=== PATIENT | female | born 1980 | race Caucasian/White ===

== ENCOUNTER 2019-08-16 05:38 | Day surgery (SDC) | payer OTHER, SELFPAY ==
[2019-08-13 09:12] VITALS: BMI 21.5
[2019-08-16] VITALS (7 sets, daily range): BP systolic 101–115; BP diastolic 53–70; PULSE 54–74; RESP 10–16; TEMP 36.4–37; O2SAT 100; BMI 21.0
[2019-08-16] MEDS: LACTATED RINGERS 1,000 ML 30 ML IV CONT ×2 (06:55→08:40)
[2019-08-16] MEDS: IBUPROFEN IV 800 MG/200 ML 800 MG/200 ML BAG 400 MG IVPB (07:02)
--- NOTE | 2019-08-16 07:22 | WPDANESEPPF ---
Anes - Initial Pre Proc Eval Procedure: Operation Date: 08/16/19 07:30 Proposed Procedures p Excision Bartholin's Gland - Fidelia Martin MD Date/Time: 08/16/19 07:22 Surgeon: Fidelia Martin MD Pre Op Diagnosis: bartholin's gland abscess Patient Data Age: 39 Gender: F Height: 1.63 m Weight: 55.7 kg Last Vital Signs Temp 37.0 C 08/16/19 06:50 Pulse 69 08/16/19 06:50 Resp 16 08/16/19 06:50 BP 101/68 08/16/19 06:50 Pulse Ox 100 08/16/19 06:50 Allergies Allergy/AdvReac Type Severity Reaction Status Date / Time No Known Allergies Allergy Mild Unverified 08/16/19 07:07 Home Medications Medication Instructions Recorded Confirmed Type No Home Medications 08/13/19 08/16/19 History Patient hx anesthesia problems: none Family hx anesthesia problems: none PMFSH Social History Social History Smoking status: Never smoker Alcohol intake: current Gender identity (if verbalized by the patient): Female Anes - Eval Final PreProcedure Day of Procedure 08/16/19 07:22 Patient weight: normal Heart: regular rate and rhythm Lungs: clear to auscultation and normal air movement Airway: Mallampati scale class II Neurological: alert and oriented Last oral intake: >/= 8 hours ASA classification: II Emergent: no Anesthetic plan: proceed Anesthesia type and monitoring: general LMA Informed Consent: The patient's anesthetic plan and its attendant risks and benefits were discussed with the patient/family/POA. Questions were solicited and answers provided to the satisfaction of the patient/family/POA.
--- NOTE | 2019-08-16 07:30 | PM.IMHP ---
H&P: HPI History of Present Illness Chief complaint: bartholin's gland abscess Narrative: Luciana Stratton is a 39 year old female with a painful vulvar lesion/Bartholin's abscess. We have agreed to perform excision of Bartholin's gland. She understands the risk. She understands that injuries may occur that result in hospitalization, more surgery, severe illness. She understands risk of hemorrhage and infection. She did understands as were risk of wound breakdown. Review of Systems Constitutional: Constitutional: Reports no additional constitutional complaints, Denies fatigue, Denies headache(s), Denies lethargy and Denies weakness Eyes: Eyes: Reports no additional eye complaints, Denies blurry vision and Denies photophobia ENT: Reports as per HPI, Denies headache(s) and Denies neck pain Cardiovascular: Cardiovascular: Denies chest pain, Denies diaphoresis, Denies leg edema, Denies palpitations and Denies dyspnea Respiratory: Respiratory: Denies hemoptysis, Denies dyspnea and Denies wheezing Gastrointestinal: Gastrointestinal: Denies abdominal pain, Denies melena, Denies bloating, Denies hematochezia, Denies nausea and Denies vomiting Genitourinary: Genitourinary: Reports no additional female genitourinary complaints Musculoskeletal: Musculoskeletal: Denies joint swelling, Denies neck pain, Denies numbness and Denies stiffness Neurologic: Denies Abnormal speech present, Denies confusion, Denies headache(s), Denies numbness and Denies weakness Psychiatric: Psychiatric: Denies anxiety, Denies confusion, Denies depression, Denies homicidal ideation and Denies suicidal ideation Endocrine: Endocrine: Denies fatigue and Denies palpitations Allergic/Immunologic: Allergic/Immunologic: Denies wheezing [facility], [facility] Social History Social History Smoking status: Never smoker Alcohol intake: current Gender identity (if verbalized by the patient): Female Meds Home Medications and Allergies Home Medications Medication Instructions Recorded Confirmed Type No Home Medications 08/13/19 08/16/19 History Allergies Allergy/AdvReac Type Severity Reaction Status Date / Time No Known Allergies Allergy Mild Unverified 08/16/19 07:07 Vital Signs Vital Signs - 24 hr 08/16/19 06:50 Temperature 98.6 F Pulse Rate 69 Respiratory Rate 16 Blood Pressure 101/68 Pulse Oximetry 100 Exam Const: General: healthy appearing, comfortable and no acute distress; No confusion Orientation/consciousness: No confusion Eyes: Direct Ophthalmoscopy: No photophobia Resp: Auscultation: clear to auscultation bilaterally, no rales, no rhonchi and no wheezes Cardio: Rate: regular rate Heart sounds: no click, no murmurs and no rubs GI: Inspection: non-distended GI Palp: No abdominal tenderness Auscultation: normal bowel sounds : External Female Exam: other (2.5 cm enlarged Bartholin's gland on the right, tender) Speculum Exam - Vagina: normal appearance of the vagina Speculum Exam - Cervix: normal appearance of the cervix Bimanual exam- vagina & uterus: normal bimanual exam Bimanual Exam- Adnexa, other: normal adnexae Neuro: General: No confusion Speech: No Abnormal speech present Extrem: General: normal to inspection, no pedal edema and no calf tenderness Assessment and Plan Assessment and plan (1) Bartholin's gland abscess: Code(s): N75.1 - Abscess of Bartholin's gland Status: Acute Additional Plan This patient is a 39-year-old female presents for preoperative care. She has a Bartholin's gland abscess that is recurrence. We have agreed to excise the Bartholin's gland. She understands risks, benefits, and alternatives. She has completed the informed consent process is ready to proceed.
[2019-08-16] MEDS: LIDO 1%/EPINEPHRINE 1:100,000 20 ML VIAL 10 ML INFILTRATE (07:40)
[2019-08-16] MEDS: ceFAZolin SODIUM 1 GM VIAL IM (07:45)
--- NOTE | 2019-08-16 08:26 | SUR.OPER ---
EBL:10CC
--- NOTE | 2019-08-16 08:49 | PM.PROC ---
Procedure Note - Detailed Date of procedure: 08/16/19 Pre-op diagnosis: bartholin's gland abscess Procedure performed: Excision of Bartholin's gland Description of procedure: Patient was taken to the operating room. She was prepped and draped in the dorsal lithotomy position after induction of mac anesthesia. A linear skin incision was made on the right labia majora. Prior to that the subcutaneous tissue around the Bartholin's abscess was injected with lidocaine. The incision was opened and the subcutaneous tissue was dissected around the Bartholin's abscess. All along the lateral and superior and inferior aspects tissue was moved off the capsule of the gland. Medially the skin was carefully dissected off of the gland. At the posterior aspect of the cyst the subcutaneous tissue was removed in the capsule was amputated. It was intact and was sent to pathology department. Deep sutures of 3 0 Vicryl were placed in a running lock fashion in the deep subcutaneous tissue. A 2nd layer of subcutaneous sutures were placed in a running lock fashion. A 3rd layer in the shallow subcutaneous tissue was placed. This skin was closed in an interrupted 3 0 Vicryl sutures. It was hemostatic. Procedure was terminated. Anesthesia: MAC Surgeon: Fidelia Martin MD Estimated blood loss (mL): 25 Drains: No Packing: No Pathology: yes Complications: No immediate complications Condition: stable Disposition: PACU Findings: 4 cm Bartholin's gland abscess, moderate amount of scarring around the capsule of the gland. Normal appearing vulva and distal vagina.
== END 2019-08-16 10:35 | disposition home or self-care (01) ==
PROVIDERS: PCP Internal Medicine; Visit Provider Obstetrics & Gynecology
PROC: (CPT 56440; principal; 2019-08-16 07:30)
DX: N75.1 Abscess of Bartholin's gland (principal)
CPT/HCPCS: 56740; 88304; 88305; A9270; J0690; J1100; J1741; J1885; J2250; J2405; J2704; J3010; J7120

== ENCOUNTER → 2020-04-30 07:34 | Outpatient (CLI) | payer OTHER, SELFPAY ==
--- NOTE | ~2020-04-30 | MMUS_ITS ---
EXAMINATION: MM diagnostic millie BI w serene, US breast BI limited HISTORY: Palpable lumps at the 3:00 location in the right breast at 9:00 location of the left breast TECHNIQUE: Craniocaudal, mediolateral, and mediolateral oblique 3-D tomosynthesis images of the breas ts were performed and synthetic 2-D images were generated. CAD analysis was submitted and interpreted . High resolution limited bilateral breast ultrasound was performed. COMPARISON: None, baseline FINDINGS: MAMMOGRAPHIC FINDINGS: Right breast: There is an approximately 2.9 cm oval, obscured, low density mass at the 3:00 location 3 cm from the nipple corresponding to the palpable abnormality of concern. No suspicious calcificatio n or architectural distortion are identified. Left breast: There is an approximately 2.5 cm oval, obscured, low density mass in the middle third of the breast at the 9:00 location 2 cm from the nipple. No suspicious calcification or architectural d istortion are identified. ULTRASOUND: There is a 2.5 cm simple cyst of the right breast at 3:00 location corresponding to the palpable abno rmality of concern. There is a 2 cm cyst of the left breast at the 10:00 location 1 cm from the nippl e corresponding to the palpable abnormality of concern. IMPRESSION: 1. Bilateral breast cysts corresponding to the areas of palpable concern. No mammographic or sonograp hic evidence of malignancy. 2. Recommend routine screening mammography in one year. BI-RADS Category 2: Benign finding(s). Reviewed, dictated and finalized at location A. [employer] IMPRESSION: 1. Bilateral breast cysts corresponding to the areas of palpable concern. No ma mmographic or sonographic evidence of malignancy. 2. Recommend routine screening mammography in one year. BI-RADS Category 2: Benign finding(s).
== END ==
PROVIDERS: PCP Internal Medicine; Visit Provider Advanced Practice Midwife
DX: N63.0 Unspecified lump in unspecified breast (principal); N60.02 Solitary cyst of left breast; N60.01 Solitary cyst of right breast
CPT/HCPCS: 76642; 77062; 77066; G0279

== ENCOUNTER 2023-07-31 14:31 | Outpatient (CLI) | payer OTHER, SELFPAY ==
--- NOTE | ~2023-07-31 | MM_ITS ---
EXAMINATION: MM screening millie BI w serene HISTORY: Screening TECHNIQUE: Craniocaudal and mediolateral oblique 3-D tomosynthesis images were obtained and synthetic 2-D images were generated. CAD analysis was submitted and interpreted. COMPARISON: 04/30/2020 BREAST PARENCHYMAL COMPOSITION: Dense: The breasts are extremely dense, which lowers the sensitivity of mammography. FINDINGS: There is no evidence of suspicious mass, calcification, or architectural distortion to sugg est malignancy in either breast. There has been no suspicious interval change. IMPRESSION: 1. No mammographic evidence of malignancy. 2. Recommend routine screening mammography in one year. BI-RADS Category 1: Negative Reviewed, dictated and finalized at location A.
== END 2023-07-31 14:32 ==
LOC: MICIMG 14:32
PROVIDERS: PCP Nurse Practitioner Obstetrics & Gynecology; Visit Provider Nurse Practitioner Obstetrics & Gynecology
DX: Z12.31 Encounter for screening mammogram for malignant neoplasm of breast (principal)
CPT/HCPCS: 77063; 77067

== ENCOUNTER 2023-08-24 05:45 | Day surgery (SDC) | payer OTHER, SELFPAY ==
[2023-08-24 06:19] VITALS: BMI 20.9
[2023-08-24 06:21] VITALS: BP 110/69; PULSE 55; RESP 16; TEMP 37.2; O2SAT 100
--- NOTE | 2023-08-24 07:16 | PM.HPGS ---
History of Present Illness History of Present Illness Consent: Risks, benefits, and alternatives have been discussed and questions answered. Patient agrees to proceed with procedure. Chief complaint: Neoplasia screening Narrative: Luciana Stratton is a 43 year old female referred for colonoscopy.. Patient presents for screening colonoscopy. Patient reports a tendency towards constipation that has been present for some time. Her current weight appetite bowel movements are normal. She denies abdominal pain or bleeding. Family history significant for grandfather with colon cancer. Review of Systems Review of Systems: Review of systems noncontributory. ON LICENSE OF [facility] Social History Social History Smoking status: Never smoker Second hand tobacco smoke exposure: No Alcohol intake: current Drinks per week: 2 Substance use: never Substance use type: does not use Lack of Transportation: No Lack of Food: Never True Current Housing: I Have Housing Concerned About Future Housing: No Difficulty Paying Gas/Electric Bills: No Difficulty Paying for Meds: No Currently Unemployed: No Education: Bachelor's Degree Difficulty w/ Childcare or Family Care: No Living arrangements: with family Gender identity (if verbalized by the patient): Female Meds Home Medications and Allergies Home Medications Medication Instructions Recorded Confirmed Type ketoconazole 2 % topical foam 1 applic topical BID 4 weeks #100 06/23/23 08/24/23 Rx grams Vitamin C 1 tab-cap PO DIRECTED 08/04/23 08/24/23 History Vitamin D3 1 tab-cap PO DIRECTED 08/04/23 08/24/23 History calcium 1 tab-cap PO DIRECTED 08/04/23 08/24/23 History multivitamin 1 tablet PO DIRECTED 08/04/23 08/24/23 History omega-3 fatty acids 1 cap PO DIRECTED 08/04/23 08/24/23 History Allergies Allergy/AdvReac Type Severity Reaction Status Date / Time No Known Allergies Allergy Mild Verified 08/24/23 06:16 Vital Signs Vital Signs - 24 hr 08/24/23 06:21 Temperature 99 F Pulse Rate 55 L Respiratory Rate 16 Blood Pressure 110/69 Pulse Oximetry 100 Oxygen Delivery Room Air Exam Narrative: Physical exam reveals patient to be alert. Vital signs stable. HEENT exam is unremarkable. Patient is anicteric. Lungs are clear to auscultation and percussion. Heart is without murmur or extra sounds. Abdomen bowel sounds are present soft nontender with no organomegaly. Digital external rectal exam normal. Assessment and Plan Assessment and plan (1) Encounter for screening colonoscopy: Code(s): Z12.11 - Encounter for screening for malignant neoplasm of colon Status: Acute Assessment and Plan: Patient presents for screening colonoscopy. Recommend stool softener such as Metamucil or fiber supplementation 1st constipation. Does have a grandfather with colon cancer but no first-degree relatives. further recommendations may be given after endoscopy.
--- NOTE | 2023-08-24 07:22 | P.PNAN_ITS ---
Anes - Initial Pre Proc Eval Procedure: Operation Date: 08/24/23 07:30 Proposed Procedures p Diagnostic Colonoscopy - Adam Lopez MD Date/Time: 08/24/23 07:22 Surgeon: Adam Lopez MD Pre Op Diagnosis: Neoplasia screening Patient Data Age: 43 Gender: F Height: 1.63 m Weight: 55.2 kg Last Vital Signs Temp 37.2 C 08/24/23 06:21 Pulse 55 L 08/24/23 06:21 Resp 16 08/24/23 06:21 BP 110/69 08/24/23 06:21 Pulse Ox 100 08/24/23 06:21 O2 Del Method Room Air 08/24/23 06:21 Allergies Allergy/AdvReac Type Severity Reaction Status Date / Time No Known Allergies Allergy Mild Verified 08/24/23 06:16 Home Medications Medication Instructions Recorded Confirmed Type ketoconazole 2 % topical foam 1 applic topical BID 4 weeks #100 06/23/23 08/24/23 Rx grams Vitamin C 1 tab-cap PO DIRECTED 08/04/23 08/24/23 History Vitamin D3 1 tab-cap PO DIRECTED 08/04/23 08/24/23 History calcium 1 tab-cap PO DIRECTED 08/04/23 08/24/23 History multivitamin 1 tablet PO DIRECTED 08/04/23 08/24/23 History omega-3 fatty acids 1 cap PO DIRECTED 08/04/23 08/24/23 History Patient hx anesthesia problems: none Family hx anesthesia problems: none Results Review: All pre-operative results and documents have been reviewed as part of the pre- operative evaluation. [facility] Surgical History Surgical History (Updated 08/24/23 @ 07:23 by Jamir Hirsch MD) History of appendectomy History of D&C Social History Social History Smoking status: Never smoker Second hand tobacco smoke exposure: No Alcohol intake: current Drinks per week: 2 Substance use: never Substance use type: does not use Lack of Transportation: No Lack of Food: Never True Current Housing: I Have Housing Concerned About Future Housing: No Difficulty Paying Gas/Electric Bills: No Difficulty Paying for Meds: No Currently Unemployed: No Education: Bachelor's Degree Difficulty w/ Childcare or Family Care: No Living arrangements: with family Gender identity (if verbalized by the patient): Female Anes - Evdahlia Final PreProcedure Day of Procedure 08/24/23 07:22 Patient weight: normal Heart: regular rate and rhythm Lungs: clear to auscultation Airway: Mallampati scale class 1 Neurological: alert and oriented Last oral intake: >/= 8 hours ASA classification: I Emergent: no Anesthetic plan: proceed Anesthesia type and monitoring: general GIVS and standard monitoring Results Review: All pre-operative results and documents have been reviewed as part of the pre- operative evaluation. Informed Consent: The patient's anesthetic plan and its attendant risks and benefits were discussed with the patient/family/POA. Questions were solicited and answers provided to the satisfaction of the patient/family/POA.
[2023-08-24] MEDS: LACTATED RINGERS 1,000 ML 150 ML IV CONT (07:25)
[2023-08-24 07:56] VITALS: BP 100/47; PULSE 68; RESP 16; O2SAT 100
[2023-08-24 08:06] VITALS: BP 104/60; PULSE 60; RESP 16; O2SAT 100
[2023-08-24 08:16] VITALS: BP 109/71; PULSE 58; RESP 16; O2SAT 100
--- NOTE | 2023-08-24 08:27 | WPDANESPN ---
Anes - Prog Note Post-Op Date/Time: 08/24/23 08:27 Cardiovascular status: normal Respiratory status: normal Airway patency: baseline Mental status: baseline Post-Op hydration status: normal Vital Signs: Last Vital Signs Temp 37.2 C 08/24/23 06:21 Pulse 58 L 08/24/23 08:16 Resp 16 08/24/23 08:16 BP 109/71 08/24/23 08:16 Pulse Ox 100 08/24/23 08:16 O2 Del Method Room Air 08/24/23 08:16 Pain Score (VAS): 0/10 I/O: Intake & Output 08/23/23 08/24/23 08/24/23 23:59 07:59 15:59 Intake Total 400 100 Balance 400 100 Patient Feedback: Patient satisfied with anesthetic care.
== END 2023-08-24 08:25 | disposition home or self-care (01) ==
PROVIDERS: Visit Provider Internal Medicine Gastroenterology
PROC: 0DJD8ZZ Inspection of Lower Intestinal Tract, Via Natural or Artificial Opening Endoscopic (ICD-10-PCS; CPT 45378; principal; 2023-08-24 07:30)
DX: Z12.11 Encounter for screening for malignant neoplasm of colon (principal)
CPT/HCPCS: 45378

== ENCOUNTER 2024-08-01 14:36 | Outpatient (CLI) | payer OTHER, SELFPAY ==
--- NOTE | ~2024-08-01 | MM_ITS ---
EXAMINATION: MM screening millie BI w serene HISTORY: Screening TECHNIQUE: Craniocaudal and mediolateral oblique 3-D tomosynthesis images were obtained and synthetic 2-D images were generated. CAD analysis was submitted and interpreted. COMPARISON: Comparison to multiple prior studies sequentially, with oldest reviewed study dated 04/14. BREAST PARENCHYMAL COMPOSITION: Dense: The breasts are extremely dense, which lowers the sensitivity of mammography. FINDINGS: There is no evidence of suspicious mass, calcification, or architectural distortion to sugg est malignancy in either breast. There has been no suspicious interval change. IMPRESSION: 1. No mammographic evidence of malignancy. 2. Recommend routine screening mammography in one year. BI-RADS Category 1: Negative Reviewed, dictated and finalized at location B.
== END 2024-08-01 14:37 | disposition home or self-care (01) ==
PROVIDERS: PCP Nurse Practitioner; Visit Provider Nurse Practitioner Family
DX: Z12.31 Encounter for screening mammogram for malignant neoplasm of breast (principal)
CPT/HCPCS: 77063; 77067